=== PATIENT | female | born 1970 | race Caucasian/White ===

== ENCOUNTER → 2019-04-23 06:07 | Outpatient (CLI) | payer OTHER, SELFPAY ==
--- NOTE | 2019-04-23 | DI.MRI.S_ITS ---
PROCEDURE: MR HAND LT WO CON INDICATIONS: PAIN IN LEFT HAND AND WRIST TECHNIQUE: Noncontrast coronal T1 spin echo and T2 fast spin echo with fat saturation, axial proton density fast spin echo and T2 fast spin echo with fat saturation, sagittal T1 spin echo and STIR through the hand and fingers. COMPARISON: None. FINDINGS: Image quality: Excellent. Bones: Diffuse marrow edema throughout the fourth metacarpal shaft is seen. Ill-defined hypointense signal is seen in proximal and distal fourth metacarpal shaft concerning for nondisplaced fracture or stress fracture. There is also marrow edema seen in distal portion of the capitate with subtle linear hypointense signal, also concerning for stress fracture or nondisplaced fracture. Very mild edema involving the third metacarpal base is seen with no discrete fracture line and may represent bony contusion. No abnormal marrow signal is seen. Interphalangeal joint(s): The accessory and proper collateral ligaments appear intact. The volar plate demonstrates normal morphology. The extensor central slips appear intact on sagittal images. Metacarpophalangeal joint(s): The accessory and proper collateral ligaments appear intact, as well as the volar plate and adjacent deep transverse metacarpal ligaments. The sagittal bands of the extensor flores appear normal. Extensor apparatus: The central slips insert normally on the middle phalangeal base. The conjoint and terminal tendons insert normally on the distal phalangeal bases. More proximal portions of the extensor tendons also appear normal. Flexor apparatus: The flexor digitorum superficialis and profundus tendons both appear intact. All annular and cruciform pulleys appear intact, without adjacent soft tissue edema. Soft tissues: There is soft tissue edema surrounding fourth metacarpal shaft. Visualized muscles demonstrate normal bulk and internal signal. No intramuscular masses identified. No ganglion cysts. IMPRESSION: 1. Nondisplaced fracture or stress fracture involving the fourth metacarpal shaft as well as distal portion of capitate. Possible bony contusion involving the third metacarpal base. No other area of abnormal marrow signal. No other fracture or dislocation. 2. Tendons and ligaments of left hand are grossly intact. Dictated by: Mandeep Covarrubias M.D. on 04/23/2019 at 9:34 Approved by: Mandeep Covarrubias M.D. on 04/23/2019 at 9:41
--- NOTE | 2019-04-23 | DI.MRI.S_ITS ---
PROCEDURE: MR WRIST LT WO CON INDICATIONS: PAIN IN LEFT HAND AND WRIST TECHNIQUE: Noncontrast coronal proton density fast spin echo and T2 fast spin echo with fat saturation; coronal 3-D gradient echo, axial T1 spin echo and T2 fast spin echo with fat saturation, sagittal T1 spin echo through the wrist. COMPARISON: None. FINDINGS: Image quality: Excellent. Bones and cartilage: The carpal bones are normally aligned. There is marrow edema involving visualized the fourth metatarsal shaft and mid to distal portion of capitate. Subtle cortical disruption involving the proximal fourth metacarpal shaft is seen suggestive of a subtle nondisplaced fracture in this area. Subtle linear hypointense signal and also cortical irregularity is seen involving distal portion of capitate suggestive of a nondisplaced fracture or stress fracture. No other area of marrow signal abnormality is seen. No evidence for avascular necrosis. Overlying cartilage surfaces appear normal. Carpal ligaments: The scapholunate and lunotriquetral ligaments appear intact. In the absence of intra-articular contrast, the extrinsic carpal ligaments are not well identified. On sagittal images, the pisohamate ligament appears intact. Triangular fibrocartilage complex: The triangular fibrocartilage appears intact. The adjacent meniscal homolog appears normal in the absence of intra-articular contrast. The extensor carpi ulnaris tendon is normal in location and morphology. Tendons and soft tissues: Soft tissue edema surrounding fourth metacarpal shaft is seen. Soft tissue swelling and edema over the dorsal aspect of capitate is also noted. The carpal tunnel structures appear normal, including the median nerve. The ulnar nerve appears normal within Guyon's canal. All six extensor tendon compartments demonstrate normal morphology, without pathologic tendon sheath fluid. No soft tissue ganglion cysts. IMPRESSION: #1. Findings suggestive of nondisplaced fracture or stress fracture involving the proximal fourth metacarpal shaft as well as distal portion of capitate. There is surrounding soft tissue swelling and edema. No other fracture or dislocation is seen. #2. Wrist tendons and ligaments are grossly intact. #3. Triangular fibrocartilage complex is grossly intact. Dictated by: Mandeep Covarrubias M.D. on 04/23/2019 at 8:13 Approved by: Mandeep Covarrubias M.D. on 04/23/2019 at 9:24
== END ==
PROVIDERS: PCP Family Medicine; Visit Provider Family Medicine
DX: M79.642 Pain in left hand (principal); M25.532 Pain in left wrist; M79.89 Other specified soft tissue disorders
CPT/HCPCS: 73218; 73221